=== PATIENT | male | born 1970 | race Caucasian/White ===

== ENCOUNTER 2018-02-10 22:16 | Emergency (ER) | payer OTHER ==
--- NOTE | 2018-02-10 22:59 | EDM.PDOC ---
ED HPI GENERAL MEDICAL PROBLEM - General Chief Complaint: Upper Extremity Injury/Pain Stated Complaint: ARM INJURY Time Seen by Provider: 02/10/18 22:32 Source of Information: Reports: Patient History Limitations: Reports: No Limitations - History of Present Illness INITIAL COMMENTS - FREE TEXT/NARRATIVE: The patient states that he has had countless left shoulder dislocations over 20 years, but only 4 or 5 since rotator cuff repair 15-20 years ago. The patient states that about 10 days ago he fell, dislocating his left shoulder. He was seen at the [facility] by LAURENT Reina, where his shoulder was reduced, and he was placed into an arm immobilizer. He states that he wore the ER immobilizer until today. He states that he simply reached up around 20:00, causing the shoulder to dislocate again. He is otherwise uninjured. The patient's last oral solid food was around 16:00. The patient's PCP is at the [facility]. He is in this area for work. Left Shoulder Pain Score (Numeric/FACES): 7 - Related Data Allergies Allergy/AdvReac Type Severity Reaction Status Date / Time No Known Allergies Allergy Verified 02/10/18 22:31 Home Meds: Home Meds Loratadine [Claritin] 10 mg PO DAILY 05/15/16 [History] Past Medical History HEENT History: Reports: Allergic Rhinitis Cardiovascular History: Reports: Hypertension - Past Surgical History HEENT Surgical History: Reports: Tonsillectomy Musculoskeletal Surgical History: Reports: Shoulder Surgery (open rotator cuff repair around 1999) Social & Family History - Tobacco Use Smoking Status *Q: Never Smoker - Caffeine Use Caffeine Use: Reports: None - Alcohol Use Alcohol Use History: Yes Alcohol Use Frequency: Socially - Recreational Drug Use Recreational Drug Use: No - Living Situation & Occupation Living situation: Reports: , Alone 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 ED EXAM, GENERAL - Physical Exam Exam: See Below Exam Limited By: No Limitations General Appearance: Alert, WD/WN, No Apparent Distress Extremities: Other (Left shoulder exam consistent with anterior dislocation, with palpable anterior fullness and tenderness. Neurovascular status of the left upper extremity is intact.) Course - Vital Signs Last Recorded V/S: Last Vital Signs Temp 36.2 C 02/10/18 22:26 Pulse 79 08/14/18 23:56 Resp 16 02/10/18 23:56 BP 135/103 H 02/10/18 23:56 Pulse Ox 99 02/10/18 23:56 - Orders/Labs/Meds Orders: Active Orders 24 hr Category Date Time Status Shoulder 1V Lt [CR] Stat Exams 02/10/18 23:45 Taken Shoulder Comp Lt [CR] Stat Exams 02/10/18 22:33 Taken Meds: Medications Discontinued Medications Generic Name Dose Route Start Last Admin Trade Name Arias PRN Reason Stop Dose Admin Fentanyl Confirm 02/10/18 23:33 Sublimaze Administered 02/10/18 23:34 Dose 100 mcg .ROUTE .STK-MED ONE Lactated Ringer's Confirm 02/10/18 23:30 Ringers, Lactated Administered 02/10/18 23:31 Dose 1,000 mls @ as directed .ROUTE .STK-MED ONE Lidocaine HCl Confirm 02/10/18 23:30 Xylocaine-Mpf 1% Administered 02/10/18 23:31 Dose 4 mls @ as directed .ROUTE .STK-MED ONE Propofol Confirm 02/10/18 23:30 Diprivan 20 Ml Administered 02/10/18 23:31 Dose 200 mg .ROUTE .STK-MED ONE - Re-Assessments/Exams Free Text/Narrative Re-Assessment/Exam: 02/10/18 22:56 3-view radiographs of the left shoulder appear to demonstrate an inferior and anterior dislocation. No fracture seen. Evidence of prior rotator cuff surgery visible. Formal read per the Radiologist pending. 02/10/18 23:48 The patient was sedated with propofol per anesthesia. Traction and countertraction was applied, with successful reduction of the left shoulder. Post-procedure portable Y-view radiograph confirms reduction. No fracture seen. The patient has been placed into a left arm immobilizer. He will be discharged home once he is adequately awake - his sister is on her way to collect him. Departure - Departure Time of Disposition: 23:50 Disposition: Home, Self-Care 01 Condition: Good Clinical Impression: Recurrent dislocation, left shoulder - Discharge Information *PRESCRIPTION DRUG MONITORING PROGRAM REVIEWED*: Not Applicable *COPY OF PRESCRIPTION DRUG MONITORING REPORT IN PATIENT ALLISON: Not Applicable Instructions: Shoulder Dislocation, [id number] Referrals: PCP,Not In Area [Primary Care Provider] - Forms: ED Department Discharge Additional Instructions: You were seen in the emergency room for a recurrent left shoulder dislocation. Workup in the ER included x-rays of your left shoulder, which confirmed dislocation, and showed no fracture. Your shoulder was reduced in the ER under sedation. Your left arm has been placed into an arm immobilizer. We recommend that you continue to wear this until you are cleared to remove it by an Orthopedic Surgeon. Take [id number] ibuprofen, 2-3 tablets (400-600 mg) every 8 hours, with food, as needed for discomfort. Follow-up with the Orthopedic Surgeon Dr. Yassine Boo or your own Orthopedic Surgeon, at the next available appointment. If any other problems, please do not hesitate to return to the ER. - My Orders Last 24 Hours: My Active Orders 02/10/18 22:33 Shoulder Comp Lt [CR] Stat 02/10/18 23:45 Shoulder 1V Lt [CR] Stat - Assessment/Plan Last 24 Hours: My Active Orders 02/10/18 22:33 Shoulder Comp Lt [CR] Stat 02/10/18 23:45 Shoulder 1V Lt [CR] Stat ED JOINT REDUCTION/SPLINTING - Joint Reduction Site: Shoulder (L) Sedation: Conscious Sedation (Propofol per Anesthesia) Pre-procedure NV status: Normal Post-procedure NV status: Normal Technique: Traction/Counter Traction Number of Attempts: 1 Post-Reduction Imaging: Completely Reduced, No Fracture Seen Complications: No
--- NOTE | 2018-02-10 23:26 | PCM.PREANE ---
Preanesthetic Assessment - Procedure Proposed Procedure: left dislocated shoulder - Anesthesia/Transfusion/Family Hx Anesthesia History: Prior Anesthesia Without Reaction Family History of Anesthesia Reaction: No Transfusion History: No Prior Transfusion(s) - Review of Systems General: No Symptoms Pulmonary: No Symptoms Cardiovascular: No Symptoms Gastrointestinal: No Symptoms Neurological: No Symptoms Other: Reports: None - Physical Assessment NPO Status Date: 02/10/18 (water at 7) NPO Status Time: 16:00 (rice and hamburger) O2 Sat by Pulse Oximetry: 98 Respiratory Rate: 16 Vital Signs: Last Vital Signs Temp 97.2 F 02/10/18 22:26 Pulse 81 02/10/18 22:26 Resp 16 02/10/18 22:26 BP 146/115 H 02/10/18 22:26 Pulse Ox 98 02/10/18 22:26 Height: 5 ft 7 in Weight: 95.254 kg ASA Class: 2E Mental Status: Alert & Oriented x3 Airway Class: Mallampati = 1 Dentition: Reports: Normal Dentition Thyro-Mental Finger Breadths: 3 Mouth Opening Finger Breadths: 3 ROM/Head Extension: Full Lungs: Clear to Auscultation, Normal Respiratory Effort Cardiovascular: Regular Rate, Regular Rhythm - Allergies Allergies/Adverse Reactions: Allergies Allergy/AdvReac Type Severity Reaction Status Date / Time No Known Allergies Allergy Verified 02/10/18 22:31 - Blood Blood Available: No - Acknowledgements Anesthesia Type Planned: MAC Pt an Appropriate Candidate for the Planned Anesthesia: Yes Alternatives and Risks of Anesthesia Discussed w Pt/Guardian: Yes Pt/Guardian Understands and Agrees with Anesthesia Plan: Yes PreAnesthesia Questionnaire - Past Health History Medical/Surgical History: Denies Medical/Surgical History Cardiovascular History: Reports: Hypertension Respiratory History: Reports: None Oncologic (Cancer) History: Reports: None - Past Surgical History HEENT Surgical History: Reports: Tonsillectomy Musculoskeletal Surgical History: Reports: Shoulder Surgery - History Comment History Comment: bp med but doesn't remember name - SUBSTANCE USE Smoking Status *Q: Never Smoker Tobacco Use Within Last Twelve Months: No Second Hand Smoke Exposure: No Days Per Week of Alcohol Use: 1 Number of Drinks Per Day: 2 Total Drinks Per Week: 2 Recreational Drug Use History: No - HOME MEDS Home Medications: Home Meds Loratadine [Claritin] 10 mg PO DAILY 05/15/16 [History]
[2018-02-10] MEDS ORDERED: Propofol 200 MG/20 ML SDV ONE (23:30)
[2018-02-10] MEDS ORDERED: Lactated Ringers 1,000 ML ONE (23:30)
[2018-02-10] MEDS ORDERED: Lidocaine 1% 4 ML ONE (23:30)
[2018-02-10] MEDS ORDERED: fentaNYL 100 MCG/2 ML SDV ONE (23:33)
[2018-02-10 23:57] VITALS: BP 135/103
--- NOTE | 2018-02-10 23:57 | PCM48HPAN ---
Post Anesthesia Note - EVALUATION WITHIN 48HRS OF ANESTHETIC Vital Signs in Normal Range: Yes Patient Participated in Evaluation: Yes Respiratory Function Stable: Yes Airway Patent: Yes Cardiovascular Function Stable: Yes Hydration Status Stable: Yes Pain Control Satisfactory: Yes Nausea and Vomiting Control Satisfactory: Yes Mental Status Recovered: Yes Pulse Rate: 79 SaO2: 99 Resp Rate: 16 Blood Pressure: 135/103
--- NOTE | 2018-02-11 09:43 | CR ---
Left shoulder: Single portable view of the left shoulder was obtained. Comparison: Prior left shoulder study performed on the same day (10:36 PM). Previous dislocation has been reduced. Glenohumeral alignment appears within normal limits. Other findings as previously seen are noted. Impression: 1. Normal alignment of the glenohumeral joint. Diagnostic code #2
--- NOTE | 2018-02-11 09:43 | CR ---
Left shoulder: Three views of the left shoulder were obtained. Comparison: No prior shoulder study. Anterior dislocation is seen. Previous shoulder surgery is noted. Yeoman-Sachs deformity is noted. Acromioclavicular joint is normal. No additional abnormality is appreciated. Impression: 1. Anterior dislocated shoulder. 2. Other incidental findings as noted above. Diagnostic code #3
== END 2018-02-11 00:22 | disposition home or self-care (01) ==
LOC: JD.ED 22:16
DX: M24.411 Recurrent dislocation, right shoulder (principal); I10 Essential (primary) hypertension; Z79.899 Other long term (current) drug therapy
CPT/HCPCS: 23655; 73020; 73030; 99284; J2704; J3010; 01620; 99283-25; J2001